=== PATIENT | female | born 1975 | race Caucasian/White ===

== ENCOUNTER 2019-04-08 23:32 | Observation (INO) ==
[2019-04-09] MEDS ORDERED: Isovue-370 500 ML BOTTLE IVP ONE ×2 (00:12→00:34)
[2019-04-09 00:43] LABS: Basophils % 0.6 %; Eosinophils # 0.1 K/mcL (0.0-0.6); Eosinophils % 1.2 %; Hematocrit 40.4 % (35.3-44.9); Hemoglobin 14.2 g/dL (11.5-15.4); Immature Granulocytes % 0.4 % (0-4); Mean Corpuscular HGB Conc 35.1 g/dL (31.6-35.5); Mean Corpuscular Hemoglobin 32.8 pg (28.0-33.3); Mean Corpuscular Volume 93.3 fL (83.0-100.0); Mean Platelet Volume 10.1 fL (9.4-12.4); Monocytes # 0.4 K/mcL (0.0-1.3); Monocytes % 6.4 %; Neutrophils # 4.2 K/mcL (1.6-8.9); Platelet Count 211 K/mcL (140-400); Red Blood Count 4.33 M/mcL (3.82-4.97); Red Cell Distribution Width 12.2 % (11.5-14.5); Segmented Neutrophils % 62.4 %; White Blood Count 6.8 K/mcL (4.3-11.1)
[2019-04-09 00:48] LABS: Prothrombin Time 10.8 Seconds (9.4-12.1)
[2019-04-09 00:50] LABS: Activated Partial Thrombo Time 36.3 Seconds (26.0-36.0)
[2019-04-09 01:04] LABS: BUN/Creatinine Ratio 40 (6-26); Blood Urea Nitrogen 23 mg/dL (6-20); Calcium 8.5 mg/dL (8.6-10.3); Carbon Dioxide 22 mEq/L (23-29); Chloride 108 mEq/L (98-107); Glucose 106 mg/dL (70-105); Osmolality,Calculated 292 (280-300); Potassium 3.6 mEq/L (3.5-5.1); Sodium 139 mEq/L (136-145); eGFR For African Americans > 60 (> 60); eGFR For Non-African Americans > 60 (> 60)
[2019-04-09 01:05] LABS: Troponin I < 0.03 ng/mL (< 0.04)
[2019-04-09 01:18] LABS: Bilirubin,Urine Small (Negative); Blood,Urine Negative (Negative); Clarity,Urine Cloudy (Clear); Color,Urine Yellow (Yellow); Glucose,Urine (UA) Normal (Normal); Ketones,Urine Negative (Negative); Leukocyte Esterase,Urine Negative (Negative); Nitrite,Urine Negative (Negative); Protein,Urine 30 mg/dL (Neg-Trace); Urobilinogen,Urine Normal (Normal)
[2019-04-09 01:21] LABS: Bacteria,Urine Few per hpf (None-Few); Hyaline Casts,Urine Few per lpf (None-Few); Squamous Epithelial Cell,Urine Many per lpf (None-Few)
[2019-04-09] MEDS ORDERED: Aspirin 325 MG TABLET PO ONE (03:19)
[2019-04-09] MEDS ORDERED: Nitroglycerin 0.4 MG TAB.SUBL SL PRN (06:09)
[2019-04-09] MEDS ORDERED: Naloxone 0.4 MG/ML INJ IVP PRN (07:47)
[2019-04-09] MEDS ORDERED: *HR* LORazepam 0.5 MG TABLET PO PRN (07:51)
[2019-04-09] MEDS: methIMAzole 5 MG TABLET PO SCH (09:26)
[2019-04-09] MEDS ORDERED: Regadenoson 0.4 MG/5 ML SYRINGE IVP ONE (09:36)
[2019-04-09] MEDS: *HR* Heparin 5,000 UNIT/ML VIAL SQ SCH ×2 (13:14→19:58)
[2019-04-09] MEDS ORDERED: Acetaminophen 325 MG TABLET PO PRN (13:30)
[2019-04-09 15:48] LABS: Adenovirus Not Detected (Not Detect); Bordetella Pertussis Not Detected (Not Detect); Chlamydophila pneumoniae Not Detected (Not Detect); Coronavirus 229E Not Detected (Not Detect); Coronavirus HKU1 Not Detected (Not Detect); Coronavirus NL63 Not Detected (Not Detect); Coronavirus OC43 Not Detected (Not Detect); Human Metapneumovirus Not Detected (Not Detect); Human Rhinovirus/Enterovirus DETECTED (Not Detect); Influenza A Subtype 2009 H1 Not Detected (Not Detect); Influenza B Not Detected (Not Detect); Mycoplasma pneumoniae Not Detected (Not Detect); Parainfluenza Virus 1 Not Detected (Not Detect); Parainfluenza Virus 2 Not Detected (Not Detect); Parainfluenza Virus 3 Not Detected (Not Detect); Parainfluenza Virus 4 Not Detected (Not Detect); Respiratory Syncytial Virus Not Detected (Not Detect)
[2019-04-09] MEDS ORDERED: *HR* Promethazine 25 MG/ML VIAL IVP PRN (19:33)
[2019-04-10 01:42] LABS: Alanine Aminotransferase 16 Units/L (7-52); Albumin 3.8 g/dL (3.5-5.7); Albumin/Globulin Ratio 1.3 (1.1-2.2); Alkaline Phosphatase 76 Units/L (34-104); Aspartate Amino Transferase 13 Units/L (13-39); BUN/Creatinine Ratio 28 (6-26); Bilirubin,Total 0.5 mg/dL (0.3-1.0); Blood Urea Nitrogen 19 mg/dL (6-20); Calcium 9.2 mg/dL (8.6-10.3); Carbon Dioxide 27 mEq/L (23-29); Chloride 108 mEq/L (98-107); Chol/HDL Ratio 3.8 (0-4.9); Cholesterol 159 mg/dL (< 200); Creatine Kinase 78 Units/L (30-223); Glucose 109 mg/dL (70-105); HDL Cholesterol 42 mg/dL (40-59); LDL Cholesterol,Calculated 94 mg/dL (0-99); Osmolality,Calculated 295 (280-300); Sodium 141 mEq/L (136-145); Total Protein 6.8 g/dL (6.4-8.9); Triglycerides 114 mg/dL (< 150); eGFR For African Americans > 60 (> 60); eGFR For Non-African Americans > 60 (> 60)
[2019-04-10 01:53] LABS: Thyroid Stimulating Hormone 2.805 mcIU/mL (0.340-5.600)
[2019-04-10 01:54] LABS: Triiodothyronine (T3) Free 3.85 pg/mL (2.50-3.90)
[2019-04-10] MEDS: *HR* Heparin 5,000 UNIT/ML VIAL SQ SCH (05:52)
[2019-04-10 08:57] LABS: Estimated Average Glucose 100 mg/dl
[2019-04-10] MEDS: methIMAzole 5 MG TABLET PO SCH (09:21)
[2019-04-10 10:49] VITALS: BP 95/67
[2019-04-13 10:17] LABS: ANA IgG by ELISA NONE DETECTED (None Detected)
== END 2019-04-10 15:20 | disposition home or self-care (01) ==
LOC: EMEROOARM 23:32 → CDU 23:32 → SUATTDRO 04-09 03:43 → CDU 04-09 04:05
PROVIDERS: ADMIT Internal Medicine; ATTEND Internal Medicine